=== PATIENT | female | born 2000 | race Two or more races ===

== ENCOUNTER 2025-08-21 10:40 | Observation (INO) | payer MEDICAID ==
--- NOTE | 2025-08-21 11:55 | DVH ---
BIOPHYSICAL PROFILE HISTORY: IUGR TECHNIQUE: Multiple transabdominal real-time grayscale sonographic images through the gravid uterus of the fetus with duplex Doppler color flow and M-mode spectral analysis FINDINGS: BIOPHYSICAL PROFILE: breathing score: 2 movement score: 2 tone score: 2 Quantitative ROEL score: 2 (ROEL: 10.9 Cm.) Total score: 8 The cervix not well visualized. Single live fetus in cephalic presentation. heart rate 153 beats per minute. Grade 2 anterior placenta without previa or abruption IMPRESSION: Biophysical profile score: 8
--- NOTE | 2025-08-21 15:01 | DVHDS2 ---
Physician Discharge Progress N Final Diagnosis: r/o sga 38wks Operations or Procedures: Operations or Procedures nst reactive reviwed,sono Condition on Discharge: Good Disposition: Home Discharge Instructions: Diet: Regular Activity: No Restrictions, As Tolerated Medications: na Follow Up Care: Specialist: 3d Discharge Statement: "Patient was advised to return to the ER or call 911 if any headaches, dizziness, shortness of breath, chest pain, abdominal pain, bleeding, fevers, or worsening of medical condition. Patient was counseled about treatment plan, medications, possible side effects, patientverbalized understanding. All questions were answered to the best of my ability. This discharge took greater then 30 minutes in planning, reviewing docume ntation, counseling the patient, and discussing with other team members." Visit Coding OBGYN Date of Service: Aug 21, 2025 Billing Provider: JHONATAN KEN DO BAR ROLLER Common Visit Codes: [id number] INP/OBS CARE (HIGH) BAR ROLLER Procedure Codes: 49210-52- NON-STRESS TEST JHONATAN KEN DO Aug 21, 2025 15:01
== END 2025-08-21 12:49 | disposition home or self-care (01) ==
LOC: UNDOADMOB 10:40 → EDBD 10:40 → LDRP 10:40
PROVIDERS: ADMIT Obstetrics & Gynecology; ATTEND Obstetrics & Gynecology
DX: O36.5930 Maternal care for other known or suspected poor fetal growth, third trimester, not applicable or unspecified (principal); Z3A.38 38 weeks gestation of pregnancy; Z98.890 Other specified postprocedural states
CPT/HCPCS: 59025; 76819; 81002; G0378

== ENCOUNTER 2025-08-26 05:55 | Observation (INO) | payer MEDICAID ==
--- NOTE | 2025-09-04 11:31 | DVH ---
BIOPHYSICAL PROFILE HISTORY: Term Gestation TECHNIQUE: Multiple transabdominal real-time grayscale sonographic images through the gravid uterus of the fetus with duplex Doppler color flow and M-mode spectral analysis FINDINGS: BIOPHYSICAL PROFILE: breathing score: 2 movement score: 2 tone score: 2 Quantitative ROEL score: 2 (ROEL: 11.5 Cm.) Total score: 8 The cervix not well visualized Single live fetus in cephalic presentation. heart rate 145 beats per minute. Grade 3 Anterior placenta without previa or abruption IMPRESSION: Biophysical profile score: 8
--- NOTE | 2025-09-04 14:06 | DVHDS2 ---
Physician Discharge Progress N Final Diagnosis: testing for term Operations or Procedures: Operations or Procedures 24yo IUP@40.0wks VSS per RN NST reactive per RN FKC/PreE/Labor precautions reviewed f/u for scheduled IOL on 09/06/25 for post dates per Dr. Alvares Other Interventions Other Interventions [place] [id number] Ph: [phone] DIAGNOSTIC IMAGING Diagnostic Imaging Report : [id number] Signed PATIENT: MARIANELA NARANJO ACCT: [id number] UNIT: [id number] : 2000 LOC: [facility] ROOM / BED: [id number] / A AGE / SEX: 24 / F ADM STATUS: ADM IN SERVICE 1033 ORDERING PHYSICIAN: ERLIN LITTLE CNM PROCEDURE(s): BPP - BIOPHYSICAL PROFILE REASON: Term Gestation ORDER NUMBER(s): [id number], ACCESSION NUMBER(s): [id number] BIOPHYSICAL PROFILE HISTORY: Term Gestation TECHNIQUE: Multiple transabdominal real-time grayscale sonographic images through the gravid uterus of the fetus with duplex Doppler color flow and M-mode spectral analysis FINDINGS: BIOPHYSICAL PROFILE: breathing score: 2 movement score: 2 tone score: 2 Quantitative ROEL score: 2 (ROEL: 11.5 Cm.) Total score: 8 The cervix not well visualized Single live fetus in cephalic presentation. heart rate 145 beats per minute. Grade 3 Anterior placenta without previa or abruption IMPRESSION: Biophysical profile score: 8 ATED BY: AVTAR BRADY MD DICTATED DATE/TIME: 09/04/25 112 SIGNED BY: AVTAR BRADY MD SIGNED DATE/TIME: 09/04/25 112 CC: Condition on Discharge: Stable Disposition: Home Discharge Instructions: Diet: Regular Activity: No Restrictions, As Tolerated Follow Up/Referral: as scheduled. Medications: see med list Follow Up Care: Specialist: f/u for scheduled IOL on 09/06/25 for post dates per Dr. Alvares Discharge Statement: "Patient was advised to return to the ER or call 911 if any headaches, dizziness, shortness of breath, chest pain, abdominal pain, bleeding, fevers, or worsening of medical condition. Patient was counseled about treatment plan, medications, possible side effects, patientverbalized understanding. All questions were answered to the best of my ability. This discharge took greater then 30 minutes in planning, reviewing documentation, counseling the patient, and discussing with other team members." Visit Coding OBGYN Date of Service: Sep 04, 2025 Billing Provider: ERLIN LITTLE CNM PROBATION AND PAROLE OFFICER Common Visit Codes: [id number] OBS CARE (MOD) PROBATION AND PAROLE OFFICER Procedure Codes: 10609-11- NON-STRESS TEST ERLIN LITTLE CNM Sep 04, 2025 14:06
== END 2025-09-04 11:55 | disposition home or self-care (01) ==
LOC: LDRP 09-04 10:25 → UNDOADMOB 09-04 10:25 → LDRP 09-04 10:37 → UNDODISOB 09-04 11:55
PROVIDERS: ADMIT Obstetrics & Gynecology; ATTEND Obstetrics & Gynecology
DX: O48.0 Post-term pregnancy (principal); Z3A.40 40 weeks gestation of pregnancy; Z98.890 Other specified postprocedural states
CPT/HCPCS: 59025; 76819; 81002; 94760; G0378

== ENCOUNTER 2025-09-06 06:11 | Inpatient (IN) | payer MEDICAID ==
[~2025-09-06] VITALS: Ht 160 cm; Wt 64.9 kg
[2025-09-06] MEDS ORDERED: LIDOCAINE 2%HCL (LOCAL ANESTH.) INJ 20ML MDV IJ PRN (07:15)
[2025-09-06] MEDS ORDERED: BUTORPHANOL TARTRATE 2 MG/1 ML VIAL IV PRN ×2 (07:15)
[2025-09-06 08:08] LABS: Hematocrit 42.0 % (36.0-46.0); Hemoglobin 14.4 g/dL (12.2-16.2); Mean Corpuscular Hemoglobin 30.6 pg (28.0-32.0); Mean Corpuscular Volume 88.9 fL (80.0-100.0); Nucleated Red Blood Cells % 0.0 %
[2025-09-06 08:22] LABS: INR 0.86 (0.9-1.15); Partial Thromboplastin Time 27.1 SEC (24.5-34.5); Prothrombin Time 9.3 sec (9.3-11.8)
[2025-09-06 08:27] LABS: Urine Protein, UAD Negative (Negative)
[2025-09-06 09:17] LABS: Alanine Aminotransferase 18 U/L (7-40); Albumin 3.5 g/dL (3.2-4.8); BUN/Creatinine Ratio 20.0 (10.0-20.0); Bilirubin, Total 0.3 mg/dL (0.2-1.0); Glucose 77 mg/dL (74-106); Total Protein 6.3 g/dL (5.7-8.2)
--- NOTE | 2025-09-06 09:46 | DVHHP ---
ADMIT DATE: 09/06/2025 CHIEF COMPLAINT: Here for induction of labor, post dates. HISTORY OF PRESENT ILLNESS: The patient is a 24-year-old 1, para 0 with EDC 09/04, estimated gestational age of 40+ weeks, admitted for induction of labor. The patient denies having any ruptured membrane or vaginal bleeding. PAST MEDICAL HISTORY: None. PAST SURGICAL HISTORY: None. SOCIAL HISTORY: None. FAMILY HISTORY: None. ALLERGIES: No known drug allergies. REVIEW OF SYSTEMS: Consistent with HPI. PHYSICAL EXAMINATION: VITAL SIGNS: Stable, afebrile. HEENT: Within normal limits. CARDIOVASCULAR: Regular rate and rhythm. LUNGS: Clear to auscultation. BREASTS: Symmetrical. No masses. ABDOMEN: Gravid. Estimated weight 8 pounds. PELVIC: Cervix closed, thick, high. EXTREMITIES: No clubbing, cyanosis or edema. IMPRESSION: Intrauterine at 40+ weeks, induction of labor. The patient desires induction. PLAN: Informed consent obtained. We will proceed with Cytotec. The patient was informed about the possibility of shoulder dystocia. Option of primary discussed with the patient. The patient wishes to proceed with trial of labor. She does not want any at this point. All questions answered. The patient fully understands. She wishes to proceed with planned induction. DO TERENCE Pena/RADHA TID: [id number] RECEIPT: [id number]
[2025-09-06 10:02] LABS: Alkaline Phosphatase 192 U/L (46-116); Blood Urea Nitrogen 9 mg/dL (9-23); Calcium 8.7 mg/dL (8.7-10.4)
[2025-09-06 10:21] LABS: Chloride 105 mmol/L (98-107); Potassium 3.9 mmol/L (3.5-5.1); Sodium 138 mmol/L (136-145)
[2025-09-06 10:22] LABS: Anion Gap 11 (5-15); Carbon Dioxide 22 mmol/L (20-31)
--- NOTE | 2025-09-06 14:24 | DVHPN2 ---
Chief Complaints Patient reports: No new complaints Nursing reports: No new complaints Objective Medications Current Medications Medications (Trade) Dose Ordered Sig/Leanne Route PRN Reason Start Time Stop Time Status Last Admin Benzocaine (Dermoplast) 1 applic PRN PRN TOP PERINEAL AREA DISCOMFORT 09/06/25 07:15 Butorphanol Tartrate (Stadol Injection) 1 mg Q4HPRN PRN IV MODERATE PAIN (4-6 PAIN SCALE) 09/06/25 07:15 Butorphanol Tartrate (Stadol Injection) 2 mg Q4HPRN PRN IV SEVERE PAIN (7-10 PAIN SCALE) 09/06/25 07:15 Lactated Ringer's 1,000 ml @ 125 mls/hr Q8H IV 09/06/25 07:15 Lidocaine HCl (Xylocaine) 20 ml ONCE PRN IJ PERINEAL AREA DISCOMFORT 09/06/25 07:15 Misoprostol (Cytotec) 50 mcg Q4HPRN PRN PO CERVICAL RIPENING 09/06/25 07:15 09/06/25 13:16 Sodium Lauryl Sulfate (Phisoderm) 240 ml PRN PRN TOP PERINEAL AREA DISCOMFORT 09/06/25 07:15 Witch Peggy (Tucks) 1 pad PRN PRN TOP PERINEAL AREA DISCOMFORT 09/06/25 07:15 Others VE-CLOSED,THICK ,HIGH Studies Laboratory Tests 09/06/25 07:37 Test 09/06/25 07:37 Range/Units Serum Glucose 77 74-106 mg/dL Ass/Plan Assessment IOL OF LABOR Plan REC 2 CYTOTEC Visit Coding OBGYN Date of Service: Sep 06, 2025 Billing Provider: JHONATAN KEN DO CHARGE MASTER ANALYST Common Visit Codes: [id number] OBS CARE (HIGH) CHARGE MASTER ANALYST Procedure Codes: 06006-10- NON-STRESS TEST JHONATAN KEN DO Sep 06, 2025 14:24
[2025-09-06 15:28] LABS: Amphetamine Screen, Urine Neg (NEGATIVE); Barbiturate Scree,Urine Neg (NEGATIVE); Benzodiazephine Screen, Urine Neg (NEGATIVE); Cannabinoid Screen, Urine Neg (NEGATIVE); Cocaine Screen, Urine Neg (NEGATIVE); Opiate Scree,Urine Neg (NEGATIVE); Phencyclidine Screen, Urine Neg (NEGATIVE)
[2025-09-06] MEDS: LACTATED RINGER'S 1,000 ML IV SCH (17:20)
--- NOTE | 2025-09-06 23:46 | DVHPN2 ---
CNM Labor Progress Note Date and Time Seen Date Seen: Sep 06, 2025 Time Seen: 19:30 Subjective Subjective Comment *Karen, RN at bedside interpreting Tg Chaidez is sitting up in bed with family on couch at bedside. She states she is feeling mild cramping, but no pain. She is nervous about the induction, but feeling excited at the same time. Objective Vital Signs VSS. See CPN Monitoring Method Monitoring Method: External Heart Rate Heart Rate Baseline: 135 Heart Rate Variability: Moderate Presence of FHR Accelerations: Yes Presence of FHR Decelerations: No Comment on Trends or Patterns: cat 1 Contractions Contractions Frequency: Other (every 2-3 minutes) Contractions Intensity: Mild Contractions Resting Tone: Relaxed Membranes Membranes: Intact Vaginal Exam Vag Exam Deferred: Yes Medications Medications - Pitocin: No Medication - Epidural: No Lab Results Lab Results Current Medications Medications (Trade) Dose Ordered Sig/Leanne Start Time Stop Time Status Last Admin Dose Admin Lactated Ringer's 1,000 ml @ 125 mls/hr Q8H 09/06/25 07:15 09/06/25 17:20 125 MLS/HR Eduardo Peggy (Tucks) 1 pad PRN PRN 09/06/25 07:15 Sodium Lauryl Sulfate (Phisoderm) 240 ml PRN PRN 09/06/25 07:15 Benzocaine (Dermoplast) 1 applic PRN PRN 09/06/25 07:15 Butorphanol Tartrate (Stadol Injection) 1 mg Q4HPRN PRN 09/06/25 07:15 Butorphanol Tartrate (Stadol Injection) 2 mg Q4HPRN PRN 09/06/25 07:15 Misoprostol (Cytotec) 50 mcg Q4HPRN PRN 09/06/25 07:15 09/06/25 22:00 50 MCG Lidocaine HCl (Xylocaine) 20 ml ONCE PRN 09/06/25 07:15 Oxytocin 500 ml @ 999 mls/hr Q31M ONCE 09/06/25 12:00 09/06/25 12:30 DC Oxytocin 500 ml @ 125 mls/hr Q4H ONCE 09/06/25 12:30 09/06/25 16:29 DC Laboratory Tests Test 09/06/25 07:37 09/06/25 07:00 Range/Units White Blood Count 11.1 H 4.4-10.8 10^3/uL Red Blood Count 4.72 4.0-5.20 10^6/uL Hemoglobin 14.4 12.2-16.2 g/dL Hematocrit 42.0 36.0-46.0 % Mean Corpuscular Volume 88.9 80.0-100.0 fL Mean Corpuscular Hemoglobin 30.6 28.0-32.0 pg Mean Corpuscular Hemoglobin Concent 34.4 32.0-36.0 g/dL Red Cell Distribution Width 13.5 11.8-14.3 % Platelet Count 231 140-450 10^3/uL Mean Platelet Volume 7.6 6.9-10.8 fL Neutrophils (%) (Auto) 76.3 37.0-80.0 % Lymphocytes (%) (Auto) 17.6 10.0-50.0 % Monocytes (%) (Auto) 5.0 0.0-12.0 % Eosinophils (%) (Auto) 0.6 0.0-7.0 % Basophils (%) (Auto) 0.5 0.0-2.0 % Neutrophils # (Auto) 8.5 1.6-8.6 10 ^3/uL Lymphocytes # (Auto) 2.0 0.4-5.4 10 ^3/uL Monocytes # (Auto) 0.6 0-1.3 10 ^3/uL Eosinophils # (Auto) 0.1 0-0.8 10 ^3/uL Basophils # (Auto) 0.1 0-0.2 10 ^3/uL Nucleated Red Blood Cells 0.0 % Prothrombin Time 9.3 9.3-11.8 sec Prothrombin Time INR 0.86 L 0.9-1.15 Activated Partial Thromboplast Time 27.1 24.5-34.5 SEC Sodium Level 138 136-145 mmol/L Potassium Level 3.9 3.5-5.1 mmol/L Chloride Level 105 98-107 mmol/L Carbon Dioxide Level 22 20-31 mmol/L Anion Gap 11 5-15 Blood Urea Nitrogen 9 9-23 mg/dL Creatinine 0.45 L 0.550-1.02 mg/dL Glomerular Filtration Rate Calc 139 >90 mL/min BUN/Creatinine Ratio 20.0 10.0-20.0 Serum Glucose 77 74-106 mg/dL Calcium Level 8.7 8.7-10.4 mg/dL Total Bilirubin 0.3 0.2-1.0 mg/dL Aspartate Amino Transferase (AST) 21 13-40 U/L Alanine Aminotransferase (ALT) 18 7-40 U/L Alkaline Phosphatase 192 H 46-116 U/L Total Protein 6.3 5.7-8.2 g/dL Albumin 3.5 3.2-4.8 g/dL Treponema pallidum Antibody Non-reactive Negative Hepatitis C Antibody Negative Negative Urine Color Light-yellow Yellow Urine Clarity Clear Clear Urine pH 5.0 5.0-9.0 Urine Specific [place] 1.022 1.001-1.035 Urine Protein Negative Negative Urine Ketones Negative Negative Urine Blood 1+ H Negative /uL Urine Nitrite Negative Negative Urine Bilirubin Negative Negative Urine Urobilinogen Normal Negative mg/dL Urine Leukocyte Esterase 3+ Negative /uL Urine RBC 2 0 - 4 /hpf Urine Microscopic WBC 4 0-5 /HPF Urine Squamous Epithelial Cells Few <5 /hpf Urine Bacteria Few H None Seen /hpf Urine Mucus Few None Seen Urine Glucose Normal Normal mg/dL Urine Opiates Screen Neg NEGATIVE Urine Fentanyl Screen Neg NEGATIVE Urine Barbiturates Screen Neg NEGATIVE Urine Phencyclidine Screen Neg NEGATIVE Urine Amphetamines Screen Neg NEGATIVE Urine Benzodiazepines Screen Neg NEGATIVE Urine Cocaine Screen Neg NEGATIVE Urine Cannabinoids Screen Neg NEGATIVE Assessment Assessment -24 yo with IUP at 40w2d -IOL for postdates, early labor -GBS negative -hx chlamydia in . treated. retested negative -Category 1 tracing Plan Plan -Discussed POC with patient and her family members at bedside. Discussed cytotec, CRB, and combination induction method. Answered all questions and con cerns. Patient is requesting to continue with cytotec at this time and declines the CRB. -Continue cytotec 50mcg PO q 4 hours per protocol. OK to defer SVE until 4 hours after sixth dose of cytotec -Reposition patient frequently and as needed for maternal comfort and tracing. -OK to ambulate if baby is reactive and category 1. Intermittent monitoring per protocol. Regular diet -Reassess patient in 3-4 hours, or sooner as indicated Plan discussed with: Patient, Spouse, Other (mother) Visit Coding OBGYN Date of Service: Sep 06, 2025 Billing Provider: ELIZABETH SHANNON CNM PROCESS LINE OPERATOR Common Visit Codes: [id number] INP/OBS CARE(MOD) ELIZABETH SHANNON CNM Sep 06, 2025 23:46
--- NOTE | 2025-09-07 06:44 | DVHPN2 ---
Chief Complaints Patient reports: No new complaints Nursing reports: No new complaints Objective Medications Current Medications Medications (Trade) Dose Ordered Sig/Leanne Route PRN Reason Start Time Stop Time Status Last Admin Benzocaine (Dermoplast) 1 applic PRN PRN TOP PERINEAL AREA DISCOMFORT 09/06/25 07:15 Butorphanol Tartrate (Stadol Injection) 1 mg Q4HPRN PRN IV MODERATE PAIN (4-6 PAIN SCALE) 09/06/25 07:15 Butorphanol Tartrate (Stadol Injection) 2 mg Q4HPRN PRN IV SEVERE PAIN (7-10 PAIN SCALE) 09/06/25 07:15 Lactated Ringer's 1,000 ml @ 125 mls/hr Q8H IV 09/06/25 07:15 09/07/25 01:09 Lidocaine HCl (Xylocaine) 20 ml ONCE PRN IJ PERINEAL AREA DISCOMFORT 09/06/25 07:15 Misoprostol (Cytotec) 50 mcg Q4HPRN PRN PO CERVICAL RIPENING 09/06/25 07:15 09/07/25 06:00 Sodium Lauryl Sulfate (Phisoderm) 240 ml PRN PRN TOP PERINEAL AREA DISCOMFORT 09/06/25 07:15 Witch Peggy (Tucks) 1 pad PRN PRN TOP PERINEAL AREA DISCOMFORT 09/06/25 07:15 Others ve-2cm/50/-3 Studies Laboratory Tests 09/06/25 07:37 Test 09/06/25 07:37 Range/Units Serum Glucose 77 74-106 mg/dL Ass/Plan Assessment IOL OF LABOR Plan place balloon pt had refused balloon Visit Coding OBGYN Date of Service: Sep 07, 2025 Billing Provider: JHONATAN KEN DO ELEVATOR REPAIRER Common Visit Codes: [id number] INP/OBS CARE (HIGH) ELEVATOR REPAIRER Procedure Codes: 81502-20- NON-STRESS TEST JHONATAN KEN DO Sep 07, 2025 06:44
--- NOTE | 2025-09-07 07:20 | DVHPN2 ---
CNM Labor Progress Note Date and Time Seen Date Seen: Sep 07, 2025 Time Seen: 07:05 Subjective Subjective Comment Tg is open to attempting a dobbs balloon placement at this time. She is starting to feel the contractions a bit more, but is still tolerating them. Objective Vital Signs VSS. See CPN Monitoring Method Monitoring Method: External Heart Rate Heart Rate Baseline: 140 Heart Rate Variability: Moderate Presence of FHR Accelerations: Yes Presence of FHR Decelerations: No Comment on Trends or Patterns: cat 1 Contractions Contractions Frequency: Other (every 2-3 minutes) Contractions Intensity: Mild Contractions Resting Tone: Relaxed Membranes Membranes: Intact Vaginal Exam Vag Exam Deferred: No Medications Medications - Pitocin: No Medication - Epidural: No Lab Results Lab Results Current Medications Medications (Trade) Dose Ordered Sig/Leanne Start Time Stop Time Status Last Admin Dose Admin Lactated Ringer's 1,000 ml @ 125 mls/hr Q8H 09/06/25 07:15 09/07/25 01:09 125 MLS/HR Eduardo Ocampoel (Tucks) 1 pad PRN PRN 09/06/25 07:15 Sodium Lauryl Sulfate (Phisoderm) 240 ml PRN PRN 09/06/25 07:15 Benzocaine (Dermoplast) 1 applic PRN PRN 09/06/25 07:15 Butorphanol Tartrate (Stadol Injection) 1 mg Q4HPRN PRN 09/06/25 07:15 Butorphanol Tartrate (Stadol Injection) 2 mg Q4HPRN PRN 09/06/25 07:15 Misoprostol (Cytotec) 50 mcg Q4HPRN PRN 09/06/25 07:15 09/07/25 06:00 50 MCG Lidocaine HCl (Xylocaine) 20 ml ONCE PRN 09/06/25 07:15 Oxytocin 500 ml @ 999 mls/hr Q31M ONCE 09/06/25 12:00 09/06/25 12:30 DC Oxytocin 500 ml @ 125 mls/hr Q4H ONCE 09/06/25 12:30 09/06/25 16:29 DC Laboratory Tests Test 09/06/25 07:37 09/06/25 07:00 Range/Units White Blood Count 11.1 H 4.4-10.8 10^3/uL Red Blood Count 4.72 4.0-5.20 10^6/uL Hemoglobin 14.4 12.2-16.2 g/dL Hematocrit 42.0 36.0-46.0 % Mean Corpuscular Volume 88.9 80.0-100.0 fL Mean Corpuscular Hemoglobin 30.6 28.0-32.0 pg Mean Corpuscular Hemoglobin Concent 34.4 32.0-36.0 g/dL Red Cell Distribution Width 13.5 11.8-14.3 % Platelet Count 231 140-450 10^3/uL Mean Platelet Volume 7.6 6.9-10.8 fL Neutrophils (%) (Auto) 76.3 37.0-80.0 % Lymphocytes (%) (Auto) 17.6 10.0-50.0 % Monocytes (%) (Auto) 5.0 0.0-12.0 % Eosinophils (%) (Auto) 0.6 0.0-7.0 % Basophils (%) (Auto) 0.5 0.0-2.0 % Neutrophils # (Auto) 8.5 1.6-8.6 10 ^3/uL Lymphocytes # (Auto) 2.0 0.4-5.4 10 ^3/uL Monocytes # (Auto) 0.6 0-1.3 10 ^3/uL Eosinophils # (Auto) 0.1 0-0.8 10 ^3/uL Basophils # (Auto) 0.1 0-0.2 10 ^3/uL Nucleated Red Blood Cells 0.0 % Prothrombin Time 9.3 9.3-11.8 sec Prothrombin Time INR 0.86 L 0.9-1.15 Activated Partial Thromboplast Time 27.1 24.5-34.5 SEC Sodium Level 138 136-145 mmol/L Potassium Level 3.9 3.5-5.1 mmol/L Chloride Level 105 98-107 mmol/L Carbon Dioxide Level 22 20-31 mmol/L Anion Gap 11 5-15 Blood Urea Nitrogen 9 9-23 mg/dL Creatinine 0.45 L 0.550-1.02 mg/dL Glomerular Filtration Rate Calc 139 >90 mL/min BUN/Creatinine Ratio 20.0 10.0-20.0 Serum Glucose 77 74-106 mg/dL Calcium Level 8.7 8.7-10.4 mg/dL Total Bilirubin 0.3 0.2-1.0 mg/dL Aspartate Amino Transferase (AST) 21 13-40 U/L Alanine Aminotransferase (ALT) 18 7-40 U/L Alkaline Phosphatase 192 H 46-116 U/L Total Protein 6.3 5.7-8.2 g/dL Albumin 3.5 3.2-4.8 g/dL Treponema pallidum Antibody Non-reactive Negative Hepatitis C Antibody Negative Negative Urine Color Light-yellow Yellow Urine Clarity Clear Clear Urine pH 5.0 5.0-9.0 Urine Specific [place] 1.022 1.001-1.035 Urine Protein Negative Negative Urine Ketones Negative Negative Urine Blood 1+ H Negative /uL Urine Nitrite Negative Negative Urine Bilirubin Negative Negative Urine Urobilinogen Normal Negative mg/dL Urine Leukocyte Esterase 3+ Negative /uL Urine RBC 2 0 - 4 /hpf Urine Microscopic WBC 4 0-5 /HPF Urine Squamous Epithelial Cells Few <5 /hpf Urine Bacteria Few H None Seen /hpf Urine Mucus Few None Seen Urine Glucose Normal Normal mg/dL Urine Opiates Screen Neg NEGATIVE Urine Fentanyl Screen Neg NEGATIVE Urine Barbiturates Screen Neg NEGATIVE Urine Phencyclidine Screen Neg NEGATIVE Urine Amphetamines Screen Neg NEGATIVE Urine Benzodiazepines Screen Neg NEGATIVE Urine Cocaine Screen Neg NEGATIVE Urine Cannabinoids Screen Neg NEGATIVE Chlamydia trachomatis (LEONARDA) Pending Neisseria gonorrhoeae (LEONARDA) Pending Assessment Assessment -24 yo with IUP at 40w2d -IOL for postdates, early labor -GBS negative -hx chlamydia in . treated. retested negative -Category 1 tracing Plan Plan -Discussed dobbs ripening balloon with patient. Patient would like to attempt placement at this time. Attempt to insert dobbs balloon digitally and with speculum with no success. Cervix posterior and high. Membrane sweep performed. Patient tolerated well. -Continue cytotec 50mcg PO q 4 hours per protocol. OK to defer SVE until 4 hours after sixth dose of cytotec -Reposition patient frequently and as needed for maternal comfort and tracing. -OK to ambulate if baby is reactive and category 1. Intermittent monitoring per protocol. Regular diet -Reassess patient in 3-4 hours, or sooner as indicated Plan discussed with: Patient, Spouse Visit Coding OBGYN Date of Service: Sep 07, 2025 Billing Provider: ELIZABETH SHANNON CNM COMPUTER CUSTOMER SUPPORT SPECIALIST Common Visit Codes: [id number] INP/OBS CARE(MOD) ELIZABETH SHANNON [facility] Sep 07, 2025 07:19
[2025-09-07] MEDS ORDERED: TERBUTALINE SULFATE 1 MG/ML 1ML VIAL SC PRN (09:15)
[2025-09-07] MEDS: LACT. RINGERS/OXYTOCIN 20UNITS 1,000 ML IV SCH (09:43)
--- NOTE | 2025-09-07 12:51 | DVHPN2 ---
Chief Complaints Patient reports: No new complaints Nursing reports: No new complaints Objective Medications Current Medications Medications (Trade) Dose Ordered Sig/Leanne Route PRN Reason Start Time Stop Time Status Last Admin Oxytocin 1,000 ml @ 6 ml/hr Q24H IV 09/07/25 09:15 09/07/25 09:43 Terbutaline Sulfate (Brethine Inj) 0.25 mg ONCE PRN SC Uterine tachysystole 09/07/25 09:15 Others ve-3cm/80/-1 Studies Laboratory Tests 09/06/25 07:37 Test 09/06/25 07:37 Range/Units Serum Glucose 77 74-106 mg/dL Ass/Plan Assessment IOL OF LABOR Plan cont with pitocin Visit Coding OBGYN Date of Service: Sep 07, 2025 Billing Provider: JHONATAN KEN DO WINDCHILL ADMINISTRATOR Common Visit Codes: [id number] INP/OBS CARE(HIGH) WINDCHILL ADMINISTRATOR Procedure Codes: 81284-18- NON-STRESS TEST JHONATAN KEN DO Sep 07, 2025 12:51
[2025-09-07] MEDS: ROPIVACAINE HCL 100 ML ONE (14:28)
[2025-09-07] MEDS: LACT. RINGERS/OXYTOCIN 20UNITS 500 ML IV ONE ×2 (23:30→23:31)
[2025-09-07] MEDS: DERMOPLAST 60ML BOTTLE TOP PRN (23:31)
[2025-09-07] MEDS: WITCH HAZEL-GLYCERIN PAD TOP PRN (23:31)
[2025-09-07] MEDS: PHISODERM TOP SOLN 240ML BTL TOP PRN (23:31)
[2025-09-07] MEDS ORDERED: ACETAMINOPHEN 325 MG TAB PO PRN (23:45)
[2025-09-07] MEDS ORDERED: IBUPROFEN 800 MG TAB PO ONE (23:51)
[2025-09-08] MEDS: IBUPROFEN 800 MG TAB PO SCH (00:01)
--- NOTE | 2025-09-08 00:39 | LDN2 ---
Labor and Delivery Note Date 09/07/25 Age 24 1 Para 0->1 EDC 09/05/2025 EGA 40w2d Diagnosis Vaginal Delivery: VTX Vacuum Assisted: No Placenta: Spontaneous (kyle) Sex: Male Weight 3380g / 7 lbs, 7 oz Apgars 8/9 Nuchal Cord Transected: No Amniotic Fluid: Clear Anesthesia epidural Episiotomy: No Extension: No Repaired with 3-[address]-1 EBL 150mL Labs Blood Bank 09/06/25 07:37: Blood Type O POSITIVE Comments/Significant Med Bethany At 2240 this 24yo now delivered a viable male by w/ APGARS 8/9. CLARA. placed immediately skin to skin on pts chest. Cord clamped and cut after 3 minutes by FOB. Cord blood sent per protocol. Intact 3-vessel cord and intact placenta (Kyle), delivered spontaneously Pitocin IV bolus started. Placenta sent to pathology. Patient had epidural and pain was well managed Cervix inspected and intact. vaginal laceration that extended into R labial laceration repaired with 3-[address]-1. Rectal mucosa and sphincter intact. Fundus at U-2, firm, midline, and light lochia. Straight catheter for 100 mL of clear urine. QBL 150ml in drape. VSS. Count correct x2. Patient to care and baby to couplet care, both stable. Visit Coding OBGYN Date of Service: Sep 07, 2025 Billing Provider: ELIZABETH SHANNON CNM WATCH COMMANDER Common Visit Codes: [id number] INP/OBS CARE(HIGH) WATCH COMMANDER Procedure Codes: 92337-SVY DEL INCLUDING ELIZABETH SHANNON CNM Sep 08, 2025 00:39
[2025-09-08] MEDS ORDERED: AMMONIA 0.33 ML INHALANT IN ONE (00:56)
[2025-09-08 03:00] VITALS: BP 122/71; PULSE 88; RESP 16; TEMP 98.6; O2SAT 96
[2025-09-08 07:00] VITALS: BP 108/66; PULSE 65; RESP 16; TEMP 98.1; O2SAT 98
--- NOTE | 2025-09-08 07:21 | DVHPN2 ---
Progress Note Date Seen: Sep 08, 2025 Subjective Tg had a good night's sleep and is feeling refreshed. She has no questions and is not feeling any pain SUBJECTIVE -Lochia minimal -Tolerating regular diet well. -Pain relieved with oral medication PRN -Ambulating and voiding well w/o feeling lightheaded or dizzy. -Passing flatus but no BM yet -Breast feeding. vital signs Vital Sign Date Time Temp Pulse Resp B/P (MAP) Pulse Ox O2 Delivery O2 Flow Rate FiO2 09/08/25 03:00 98.6 88 16 122/71 (88) 96 98.6 09/08/25 01:30 Room Air Total Intake and Output 09/07/25 09/07/25 09/08/25 15:00 23:00 07:00 Output Total 1200 ml Balance -1200 ml medications Current Medications Medications Dose Ordered Sig/Leanne Route Start Time Stop Time Status Last Admin Dose Admin Lactated Ringer's 1,000 ml @ 125 mls/hr Q8H IV 09/06/25 07:15 09/07/25 14:06 125 MLS/HR Witch Peggy 1 pad PRN PRN TOP 09/06/25 07:15 09/07/25 23:31 1 PAD Sodium Lauryl Sulfate 240 ml PRN PRN TOP 09/06/25 07:15 09/07/25 23:31 240 ML Benzocaine 1 applic PRN PRN TOP 09/06/25 07:15 09/07/25 23:31 1 APPLIC Butorphanol Tartrate 1 mg Q4HPRN PRN IV 09/06/25 07:15 Cancel Butorphanol Tartrate 2 mg Q4HPRN PRN IV 09/06/25 07:15 Cancel Ibuprofen 600 mg Q6HP PRN PO 09/08/25 05:00 Acetaminophen 650 mg Q4HP PRN PO 09/07/25 23:45 Ibuprofen 800 mg Q6HR PO 09/08/25 00:00 09/08/25 00:01 800 MG laboratory and microbiology Laboratory Tests 09/06/25 07:37 Test 09/06/25 07:37 Range/Units Serum Glucose 77 74-106 mg/dL Objective OBJECTIVE -A&O x4. No apparent distress. Affect appropriate -Afebrile, VSS -Chest: heart and lung sounds normal. -Breasts: Nipples intact w/o cracks or soreness -Abdomen: normal BS, soft, non-tender, no rebound or guarding, fundus firm @ U- 1, lochia minimal -Perineum: no edema, or erythema -Extremities: no edema or tenderness Problems(with codes): (1) (normal spontaneous vaginal delivery) Assessment/Plan ASSESSMENT -24 yo now ppd #1 s/p doing well. -Blood Type: O+ -Breast feeding -Rubella Immune PLAN -Continue pain management with oral medications as previously ordered -Increase fluid intake and fiber in diet to promote regular bowel movements, Laxative PRN -Encouraged patient to continue taking vitamin and iron -Continue routine care and anticipate discharge tomorrow Plan discussed with: Patient, Spouse Visit Coding OBGYN Date of Service: Sep 08, 2025 Billing Provider: ELIZABETH SHANNON CNM [employer] Common Visit Codes: [id number] INP/OBS CARE(MOD) ELIZABETH SHANNON CNM Sep 08, 2025 07:21
[2025-09-08] MEDS ORDERED: IBUPROFEN 600 MG TAB PO ONE (09:07)
[2025-09-08] MEDS: IBUPROFEN 600 MG TAB PO PRN (09:07)
[2025-09-08 11:00] VITALS: BP 93/53; PULSE 78; TEMP 97.8; O2SAT 97
[2025-09-08 15:00] VITALS: BP 102/63; PULSE 92; RESP 18; TEMP 98.3; O2SAT 96
[2025-09-08 16:07] LABS: Chlamydia Trachomatis, NAA Negative (Negative); Neisseria gonorrhoeae, NAA Negative (Negative)
[2025-09-08 19:00] VITALS: BP 108/61; PULSE 89; RESP 16; TEMP 98.8; O2SAT 97
[2025-09-08 23:05] VITALS: BP 103/67; PULSE 71; RESP 17; TEMP 98.2; O2SAT 98
[2025-09-09 03:00] VITALS: BP 97/57; PULSE 76; RESP 16; TEMP 97.5; O2SAT 97
--- NOTE | 2025-09-09 06:31 | DVHDS2 ---
Discharge Summary Discharge Summary Date of Admission: Sep 08, 2025 Date of Discharge: Sep 09, 2025 Discharge Diagnosis: / Stable Condition Brief History: Normal Spontaneous Vaginal Delivery Date 09/07/25 Age 24 1 Para 1 EDC 09/05/2025 EGA 40w2d Diagnosis Vaginal Delivery: VTX Vacuum Assisted: No Placenta: Spontaneous (Kyle) Sex: Male Weight 3380g / 7 lbs, 7 oz Apgars 8/9 Nuchal Cord Transected: No Amniotic Fluid: Clear Anesthesia epidural Episiotomy: No Extension: No Laceration : vaginal laceration that extended into R labial Repaired with 3-[address]-1 EBL 150mL Labs Blood Bank 09/06/25 07:37: Blood Type O POSITIVE Comments/Significant Med [place] At 2240 this 24yo now delivered a viable male infant by w/ APGARS 8/9. CLARA. Infant placed immediately skin to skin on pts chest. Hospital Course 09/09/2025 Subjective 24 y/o now (1,0,0,1) ppd# 2 s/p Problems: None EBL 150 Laceration: vaginal laceration that extended into R labial Perineal: Intact Lochia minimal Tolerating regular diet well. Ambulating and voiding well w/o feeling lightheaded or dizzy. Passing flatus but no BM yet. Breast feeding. Contraceptive plan: Desires and requests to be discharged home today Objective PHYSICAL EXAMINATION: VITAL SIGNS: Stable, afebrile. HEENT: Within normal limits. CARDIOVASCULAR: Regular rate and rhythm. LUNGS: Clear to auscultation. BREASTS: Symmetrical. No masses. EXTREMITIES: No clubbing, cyanosis or edema. Fundus firm @ Umbilicus -3, lochia minimal Perineum:- no edema, or erythema, Extremities: no edema or tenderness Lochia - minimal Vital Signs Date Time Temp Pulse Resp B/P (MAP) Pulse Ox O2 Delivery O2 Flow Rate FiO2 09/09/25 03:00 97.5 76 16 97/57 (70) 97 97.5 09/08/25 19:00 Room Air Laboratory Tests Test 09/06/25 07:37 09/06/25 07:00 Range/Units White Blood Count 11.1 H 4.4-10.8 10^3/uL Red Blood Count 4.72 4.0-5.20 10^6/uL Hemoglobin 14.4 12.2-16.2 g/dL Hematocrit 42.0 36.0-46.0 % Mean Corpuscular Volume 88.9 80.0-100.0 fL Mean Corpuscular Hemoglobin 30.6 28.0-32.0 pg Mean Corpuscular Hemoglobin Concent 34.4 32.0-36.0 g/dL Red Cell Distribution Width 13.5 11.8-14.3 % Platelet Count 231 140-450 10^3/uL Mean Platelet Volume 7.6 6.9-10.8 fL Neutrophils (%) (Auto) 76.3 37.0-80.0 % Lymphocytes (%) (Auto) 17.6 10.0-50.0 % Monocytes (%) (Auto) 5.0 0.0-12.0 % Eosinophils (%) (Auto) 0.6 0.0-7.0 % Basophils (%) (Auto) 0.5 0.0-2.0 % Neutrophils # (Auto) 8.5 1.6-8.6 10 ^3/uL Lymphocytes # (Auto) 2.0 0.4-5.4 10 ^3/uL Monocytes # (Auto) 0.6 0-1.3 10 ^3/uL Eosinophils # (Auto) 0.1 0-0.8 10 ^3/uL Basophils # (Auto) 0.1 0-0.2 10 ^3/uL Nucleated Red Blood Cells 0.0 % Prothrombin Time 9.3 9.3-11.8 sec Prothrombin Time INR 0.86 L 0.9-1.15 Activated Partial Thromboplast Time 27.1 24.5-34.5 SEC Sodium Level 138 136-145 mmol/L Potassium Level 3.9 3.5-5.1 mmol/L Chloride Level 105 98-107 mmol/L Carbon Dioxide Level 22 20-31 mmol/L Anion Gap 11 5-15 Blood Urea Nitrogen 9 9-23 mg/dL Creatinine 0.45 L 0.550-1.02 mg/dL Glomerular Filtration Rate Calc 139 >90 mL/min BUN/Creatinine Ratio 20.0 10.0-20.0 Serum Glucose 77 74-106 mg/dL Calcium Level 8.7 8.7-10.4 mg/dL Total Bilirubin 0.3 0.2-1.0 mg/dL Aspartate Amino Transferase (AST) 21 13-40 U/L Alanine Aminotransferase (ALT) 18 7-40 U/L Alkaline Phosphatase 192 H 46-116 U/L Total Protein 6.3 5.7-8.2 g/dL Albumin 3.5 3.2-4.8 g/dL Treponema pallidum Antibody Non-reactive Negative Hepatitis C Antibody Negative Negative Urine Color Light-yellow Yellow Urine Clarity Clear Clear Urine pH 5.0 5.0-9.0 Urine Specific [place] 1.022 1.001-1.035 Urine Protein Negative Negative Urine Ketones Negative Negative Urine Blood 1+ H Negative /uL Urine Nitrite Negative Negative Urine Bilirubin Negative Negative Urine Urobilinogen Normal Negative mg/dL Urine Leukocyte Esterase 3+ Negative /uL Urine RBC 2 0 - 4 /hpf Urine Microscopic WBC 4 0-5 /HPF Urine Squamous Epithelial Cells Few <5 /hpf Urine Bacteria Few H None Seen /hpf Urine Mucus Few None Seen Urine Glucose Normal Normal mg/dL Urine Opiates Screen Neg NEGATIVE Urine Fentanyl Screen Neg NEGATIVE Urine Barbiturates Screen Neg NEGATIVE Urine Phencyclidine Screen Neg NEGATIVE Urine Amphetamines Screen Neg NEGATIVE Urine Benzodiazepines Screen Neg NEGATIVE Urine Cocaine Screen Neg NEGATIVE Urine Cannabinoids Screen Neg NEGATIVE Chlamydia trachomatis (LEONARDA) Negative Negative Neisseria gonorrhoeae (LEONARDA) Negative Negative Assessment -24 yo now ppd #2 s/p doing well. -ambulating to and from bathroom - Urinating without complications - Tylenol for pain - desires to go home today -Blood Type: O+ -Breast feeding -Rubella Immune - Physical exam on Discharge Post Plan: Discharge plan: May discharge home later today / tomorrow if condition remains stable Daily assessment findings will determine when to discharge Discharge Disposition: Home Discharge Instructions Discharge Information / Summary Diet: Routine regular diet rich in fiber, protein, iron and vitamin C with adequate fluid intake. Activity: Unrestricted. Advance as tolerated. Balance activities with rest periods No heavy lifting, pushing or straining. Pelvic rest x 6weeks Follow up with OB Provider in 1 week Medications: Ibuprofen 600mg every 6 hours as needed for pain. Continue Vitamin and iron Medications Current Medications Medications (Trade) Dose Ordered Sig/Leanne Route Start Time Stop Time Status Last Admin Dose Admin Lactated Ringer's 1,000 ml @ 125 mls/hr Q8H IV 09/06/25 07:15 09/07/25 14:06 125 MLS/HR Eduardo Woods (Tucks) 1 pad PRN PRN TOP 09/06/25 07:15 09/07/25 23:31 1 PAD Sodium Lauryl Sulfate (Phisoderm) 240 ml PRN PRN TOP 09/06/25 07:15 09/07/25 23:31 240 ML Benzocaine (Dermoplast) 1 applic PRN PRN TOP 09/06/25 07:15 09/07/25 23:31 1 APPLIC Butorphanol Tartrate (Stadol Injection) 1 mg Q4HPRN PRN IV 09/06/25 07:15 Cancel Butorphanol Tartrate (Stadol Injection) 2 mg Q4HPRN PRN IV 09/06/25 07:15 Cancel Ibuprofen (Motrin Tablet) 600 mg Q6HP PRN PO 09/08/25 05:00 09/08/25 17:02 600 MG Acetaminophen (Tylenol Tablet) 650 mg Q4HP PRN PO 09/07/25 23:45 Ibuprofen (Motrin Tablet) 800 mg Q6HR PO 09/08/25 00:00 09/08/25 00:01 800 MG Follow up Follow up with OB Provider in 1 week Instructions: self care instructions given. emergency signs and symptoms including but not limited to pre-eclampsia precautions and signs of infection, PPH & of PPD reviewed with patient. Follow up with OB Provider in 1 week Discharge Care Plan Problem Pain Goals Pain controlled Know Disease Process Initiate lifestyle change Adequate fluid volume Adequate fluid volume Remain free of infection Instructions Take Rx medications, Notify MD of any issues See pt D/C handouts Risk factors Visit Coding OBGYN Date of Service: Sep 09, 2025 Billing Provider: BOB SANFORD CNM [employer] Common Visit Codes: [id number] INP/OBS CARE (MOD) BOB SANFORDMNov 2024 06:31
[2025-09-09 07:25] VITALS: BP 108/60; PULSE 81; RESP 18; TEMP 98.3; O2SAT 98
[2025-09-09 10:30] VITALS: BP 110/62; PULSE 78; RESP 18; TEMP 98.4; O2SAT 98
== END 2025-09-09 11:39 | disposition home or self-care (01) | DRG 560 ==
LOC: LDRP 07:01
PROVIDERS: ADMIT Obstetrics & Gynecology; ATTEND Obstetrics & Gynecology
PROC: 10E0XZZ Delivery of Products of Conception, External Approach (ICD-10-PCS; principal; 2025-09-07)
PROC: 0HQ9XZZ Repair Perineum Skin, External Approach (ICD-10-PCS; 2025-09-07)
PROC: 3E0DXGC Introduction of Other Therapeutic Substance into Mouth and Pharynx, External Approach (ICD-10-PCS; 2025-09-07)
PROC: 3E0R3BZ Introduction of Anesthetic Agent into Spinal Canal, Percutaneous Approach (ICD-10-PCS; 2025-09-07)
PROC: 00HU33Z Insertion of Infusion Device into Spinal Canal, Percutaneous Approach (ICD-10-PCS; 2025-09-07)
DX: O48.0 Post-term pregnancy (principal); Z37.0 Single live birth; O70.0 First degree perineal laceration during delivery; Z3A.40 40 weeks gestation of pregnancy
CPT/HCPCS: 36415; 80053; 80307; 81001; 85025; 85610; 85730; 86780; 86803; 86850; 86900; 86901; 94760; 94762; 96360; 96361; 96365; 96366; A4344; G0378; J2590